=== PATIENT | female | born 1940 | race American Indian/Alaskan Native ===

== ENCOUNTER 2016-07-03 15:42 | Outpatient (CLI) | payer MEDICARE ==
--- NOTE | 2016-07-03 16:54 | XRay Report ---
Chest 2 views. Findings: The heart and pulmonary vessels are normal. The lungs are clear. There is no pleural fluid. Discogenic changes are seen in the dorsal spine on the lateral view. Impression: No acute findings.
== END 2016-07-03 15:43 | disposition home or self-care (01) ==
LOC: SPVIMAG 15:42
DX: R05 Cough (principal)
CPT/HCPCS: 71020